=== PATIENT | female | born 1985 | race African-American/Black ===

== ENCOUNTER 2017-03-12 16:17 | Inpatient (IN) | payer OTHER ==
[~2017-03-12] VITALS: Ht 172.7 cm; Wt 46.7 kg
[2017-03-12] MEDS ORDERED: SODIUM CHLORIDE 0.9% 500 ML IV ONE (17:15)
[2017-03-12 17:31] LABS: BASOPHILS % 0.2 % (0.0-2.0); HEMATOCRIT. 28.5 % (36.0-48.0); HEMOGLOBIN. 9.9 g/dL (12.0-16.0); LYMPHOCYTES % 10.5 % (20.0-50.0); MEAN CORPUSCULAR HEMOGLOBIN 30.6 pg (28.0-32.0); MEAN CORPUSCULAR VOLUME 88.3 fL (81.0-99.0); MONOCYTES % 7.6 % (2.0-8.0); NEUTROPHILS % 81.7 % (40.0-76.0); PLATELET 432 x1000/uL (130-400); RED BLOOD CELL COUNT 3.23 mill/uL (4.2-5.4)
[2017-03-12 17:38] LABS: INR 1.1; PROTHROMBIN TIME 11.3 sec
[2017-03-12 17:45] LABS: CLARITY URINE CLEAR (CLEAR); COLOR URINE YELLOW (YELLOW); GLUCOSE URINE NEGATIVE (NEGATIVE); KETONES URINE NEGATIVE (NEGATIVE); LEUKOCYTE ESTERASE URINE 1+ (NEGATIVE); NITRITE URINE NEGATIVE (NEGATIVE); OCCULT BLOOD URINE TRACE (NEGATIVE); PROTEIN URINE TRACE (NEGATIVE); SPECIFIC GRAVITY URINE 1.005 (1.005-1.030)
[2017-03-12 17:48] LABS: CARBON DIOXIDE 31 mEq/L (21-32); CHLORIDE 91 mEq/L (98-107)
[2017-03-12] MEDS ORDERED: POTASSIUM CHLORIDE INJ 30 MEQ in DEXT 5%/0.9% NACL 1,000 ML IV ONE (18:15)
[2017-03-12] MEDS ORDERED: MORPHINE SULFATE 2 MG/ML CPJ (NOT FOR IM USE) IV ONE (18:15)
[2017-03-12 18:32] LABS: *AMPHETAMINES SCREEN URINE NEGATIVE (NEGATIVE); *BARBITURATES SCREEN URINE NEGATIVE (NEGATIVE); *BENZODIAZEPINES SCREEN URINE NEGATIVE (NEGATIVE); *COCAINE SCREEN URINE NEGATIVE (NEGATIVE); METHADONE URINE SCREEN NEGATIVE (NEGATIVE); OPIATES URINE SCREEN NEGATIVE (NEGATIVE); PHENCYCLIDINE URINE SCREEN NEGATIVE (NEGATIVE)
[2017-03-12 18:36] LABS: CANNABINOID URINE SCREEN PRESUMTIVE POSITIVE (NEGATIVE)
[2017-03-12 20:20] VITALS: BP 126/93
[2017-03-12] MEDS ORDERED: LEVOFLOXACIN 500MG PREMIX 100 ML IV ONE (21:00)
[2017-03-12 22:20] VITALS: BP 126/93
[2017-03-12 23:50] VITALS: BP 126/93
[2017-03-13] VITALS: BP 104/63
[2017-03-13] MEDS ORDERED: SODIUM CHLORIDE 0.9% 1,000 ML IV ONE
[2017-03-13 00:05] LABS: ETHANOL BLOOD < 10 mg/dL
[2017-03-13] MEDS: POTASSIUM CHLORIDE 20MEQ TABLET SR PO NR ×2 (00:27→00:39)
[2017-03-13 04:00] VITALS: BP 119/83
[2017-03-13] MEDS: HYDROCODONE/ACETAMINOPHEN 10/325MG TABLET PO PRN (05:17)
[2017-03-13 06:01] LABS: BASOPHILS % 0.1 % (0.0-2.0); HEMATOCRIT. 24.9 % (36.0-48.0); HEMOGLOBIN. 8.5 g/dL (12.0-16.0); LYMPHOCYTES % 10.3 % (20.0-50.0); MEAN CORPUSCULAR HEMOGLOBIN 29.9 pg (28.0-32.0); MEAN CORPUSCULAR VOLUME 87.6 fL (81.0-99.0); MEAN PLATELET VOLUME 9.1 fl (7.4-10.4); MONOCYTES % 7.4 % (2.0-8.0); NEUTROPHILS % 82.2 % (40.0-76.0); PLATELET 420 x1000/uL (130-400); RED BLOOD CELL COUNT 2.84 mill/uL (4.2-5.4); RED CELL DISTRIBUTION WIDTH 13.3 % (11.6-14.6)
[2017-03-13 06:21] LABS: CARBON DIOXIDE 27 mEq/L (21-32); CHLORIDE 100 mEq/L (98-107)
[2017-03-13 08:02] VITALS: BP 114/87
[2017-03-13] MEDS ORDERED: PNEUMOCOCCAL 23-VAL P-SAC VAC 0.5 ML IM ONE (09:00)
[2017-03-13] MEDS ORDERED: ENOXAPARIN 40MG/0.4ML SYR SUBCUT SCH (09:00)
[2017-03-13] MEDS ORDERED: POTASSIUM CHLORIDE INJ 40 MEQ in DEXT 5% WATER 250 ML IV SCH (11:00)
[2017-03-13] MEDS: MORPHINE SULFATE 4 MG/ML CPJ (NOT FOR IM USE) IV PRN ×3 (11:41→20:51)
[2017-03-13 12:00] VITALS: BP 121/85
[2017-03-13 16:00] VITALS: BP 136/95
[2017-03-13 20:00] VITALS: BP 115/82
[2017-03-13] MEDS: DEXT 5%/0.45% NACL KCL 20MEQ/L 1,000 ML IV SCH (23:48)
[2017-03-14] VITALS (12 sets, daily range): BP systolic 106–139; BP diastolic 70–84
[2017-03-14] MEDS: CEFTRIAXONE 1 G PREMIX 50 ML IV SCH (00:35)
[2017-03-14] MEDS ORDERED: LIDOCAINE HCL 1% 20ML VIAL (Pyxis) INJ ONE (09:46)
[2017-03-14] MEDS ORDERED: SODIUM BICARBONATE 4% (2.4MEQ) 5ML VIAL IV ONE (09:46)
[2017-03-14] MEDS ORDERED: IOHEXOL-300 100 ML BOTTLE ONE (09:47)
[2017-03-14] MEDS ORDERED: FENTANYL CITRATE/PF 50MCG/ML 2ML VIAL ONE (10:05)
[2017-03-14] MEDS ORDERED: DIPHENHYDRAMINE 50MG/ML VIAL ONE (10:05)
[2017-03-14] MEDS ORDERED: FENTANYL CITRATE/PF 50MCG/ML 2ML VIAL IV ONE (10:45)
[2017-03-14] MEDS ORDERED: DIPHENHYDRAMINE 50MG/ML VIAL IV ONE (10:45)
[2017-03-14] MEDS: MORPHINE SULFATE 4 MG/ML CPJ (NOT FOR IM USE) IV PRN ×4 (11:58→22:52)
[2017-03-14] MEDS: DEXT 5%/0.45% NACL KCL 20MEQ/L 1,000 ML IV SCH ×2 (13:44→22:53)
[2017-03-14] MEDS: HYDROCODONE/ACETAMINOPHEN 10/325MG TABLET PO PRN ×2 (15:17→20:05)
[2017-03-15] VITALS: BP 110/75
[2017-03-15] MEDS: CEFTRIAXONE 1 G PREMIX 50 ML IV SCH (02:17)
[2017-03-15] MEDS: HYDROCODONE/ACETAMINOPHEN 10/325MG TABLET PO PRN ×3 (02:18→23:13)
[2017-03-15 04:00] VITALS: BP 98/61
[2017-03-15 06:37] LABS: FERRITIN 584 ng/mL (10-291)
[2017-03-15 07:02] LABS: HEMATOCRIT 24.1 % (36.0-48.0); HEMOGLOBIN 8.1 g/dL (12.0-16.0); MEAN CORPUSCULAR HEMOGLOBIN 30.2 pg (28.0-32.0); MEAN CORPUSCULAR VOLUME 89.6 fL (81.0-99.0); PLATELET 501 x1000/uL (130-400); RED BLOOD CELL COUNT 2.69 mill/uL (4.2-5.4); RED CELL DISTRIBUTION WIDTH 13.3 % (11.6-14.6)
[2017-03-15] MEDS: MORPHINE SULFATE 4 MG/ML CPJ (NOT FOR IM USE) IV PRN ×3 (07:51→19:46)
[2017-03-15 07:59] LABS: CARBON DIOXIDE 29 mEq/L (21-32); CHLORIDE 98 mEq/L (98-107)
[2017-03-15 08:00] VITALS: BP 113/78
[2017-03-15 10:10] LABS: VITAMIN B12 SERUM > 2000 pg/mL (211-911)
[2017-03-15 12:00] VITALS: BP 105/78
[2017-03-15 16:00] VITALS: BP 116/72
[2017-03-15] MEDS: DEXT 5%/0.45% NACL KCL 20MEQ/L 1,000 ML IV SCH (16:05)
[2017-03-15 20:00] VITALS: BP 143/101
[2017-03-16] VITALS: BP 120/77
[2017-03-16] MEDS: CEFTRIAXONE 1 G PREMIX 50 ML IV SCH (00:21)
[2017-03-16] MEDS: MORPHINE SULFATE 4 MG/ML CPJ (NOT FOR IM USE) IV PRN ×3 (00:22→12:34)
[2017-03-16 04:00] VITALS: BP 105/77
[2017-03-16] MEDS: DEXT 5%/0.45% NACL KCL 20MEQ/L 1,000 ML IV SCH (06:15)
[2017-03-16 08:00] VITALS: BP 128/82
[2017-03-16 11:57] VITALS: BP 117/78
[2017-03-16 15:40] VITALS: BP 98/64
[2017-03-16 15:56] VITALS: BP 98/64
[2017-03-20 14:19] LABS: HGB A 56.2 % (94.0-98.0); HGB S 39.8 % (0.0); HGB SOLUBILITY Positive (Negative)
== END 2017-03-16 17:30 | disposition home or self-care (01) | DRG 710 ==
LOC: ER 16:17 → ENRESERV 21:02 → EDBEDREQSVC 21:34 → 5WST 21:56 → EDBEDREQ 22:04
PROVIDERS: ADMIT Internal Medicine; ATTEND Internal Medicine
PROC: 0T9030Z Drainage of Right Kidney with Drainage Device, Percutaneous Approach (ICD-10-PCS; principal; 2017-03-14)
DX: A41.9 Sepsis, unspecified organism (principal); N17.0 Acute kidney failure with tubular necrosis; E43 Unspecified severe protein-calorie malnutrition; N13.2 Hydronephrosis with renal and ureteral calculous obstruction; D57.1 Sickle-cell disease without crisis; E86.0 Dehydration; F17.210 Nicotine dependence, cigarettes, uncomplicated; D50.0 Iron deficiency anemia secondary to blood loss (chronic); D63.8 Anemia in other chronic diseases classified elsewhere; E87.6 Hypokalemia; F12.90 Cannabis use, unspecified, uncomplicated; Z60.2 Problems related to living alone; N12 Tubulo-interstitial nephritis, not specified as acute or chronic; Z68.1 Body mass index [BMI] 19.9 or less, adult
CPT/HCPCS: 36415; 50432; 71010; 74176; 80053; 80305; 81001; 82607; 82728; 83021; 83540; 83550; 83690; 83735; 84443; 85025; 85027; 85044; 85610; 85660; 87040; 87086; 93005; 93970; 96365; 96375; 99285; C1729; C1769; G0482; J0696; J1200; J1650; J1956; J2270; J3010; J3480; J3490; J7030; J7040; J7042; J7060; L8514; Q9967

== ENCOUNTER 2017-04-01 08:51 | Emergency (ER) | payer OTHER ==
[~2017-04-01] VITALS: Ht 162.6 cm; Wt 51.0 kg
[2017-04-01 09:01] VITALS: BP 122/78
== END 2017-04-01 11:31 | disposition home or self-care (01) ==
LOC: ER 11:26
DX: Z46.6 Encounter for fitting and adjustment of urinary device (principal); Z48.00 Encounter for change or removal of nonsurgical wound dressing
CPT/HCPCS: 99281

== ENCOUNTER 2019-11-15 21:49 | Emergency (ER) | payer OTHER ==
[~2019-11-15] VITALS: Ht 162.6 cm; Wt 65.0 kg
[2019-11-16] MEDS ORDERED: ACETAMINOPHEN 325MG TABLET PO ONE (01:15)
[2019-11-16 01:28] VITALS: BP 151/95
== END 2019-11-16 01:29 | disposition home or self-care (01) ==
LOC: ER 21:49
DX: H66.90 Otitis media, unspecified, unspecified ear (principal); Z98.890 Other specified postprocedural states
CPT/HCPCS: 99282; 99283